=== PATIENT | female | born 1965 | race Two or more races ===

== ENCOUNTER 2022-09-13 17:08 | Emergency (ER) | payer OTHER ==
[~2022-09-13] VITALS: Ht 162.6 cm; Wt 75.0 kg
[2022-09-13] MEDS ORDERED: ONDANSETRON ODT 4 MG TAB PO ONE (20:30)
[2022-09-13] MEDS ORDERED: HYDROcodone-ACET 10/325MG TAB PO ONE (20:30)
[2022-09-13 21:55] LABS: Basophils # (auto) 0.1 10 ^3/uL (0-0.2); Basophils % (auto) 0.3 % (0.0-2.0); Eosinophils # (auto) 0.2 10 ^3/uL (0-0.8); Eosinophils % (auto) 1.1 % (0.0-7.0); Hematocrit 39.4 % (36.0-46.0); Lymphocytes # (auto) 2.6 10 ^3/uL (0.4-5.4); Mean Corpuscular Hemoglobin 28.7 pg (28.0-32.0); Mean Corpuscular Volume 87.1 fL (80.0-100.0); Monocytes # (auto) 1.2 10 ^3/uL (0-1.3); Neutrophils # (auto) 12.5 10 ^3/uL (1.6-8.6); Neutrophils % (auto) 75.6 % (37.0-80.0); Nucleated Red Blood Cells % 0.1 %; Red Blood Cells 4.52 10^6/uL (4.0-5.20); Red Cell Distribution Width 12.6 % (11.8-14.3); White Blood Cell 16.5 10^3/uL (4.4-10.8)
[2022-09-14] MEDS ORDERED: ETHYL CHLORIDE SPRAY TOP ONE (00:30)
[2022-09-14] MEDS ORDERED: IBUPROFEN 800 MG TAB PO ONE (00:45)
[2022-09-14] MEDS ORDERED: HYDROcodone-ACET 5/325MG TAB PO ONE (05:45)
[2022-09-14] MEDS ORDERED: ONDANSETRON ODT 4 MG TAB PO ONE ×2 (06:00→14:15)
[2022-09-14] MEDS ORDERED: OXYCODONE W/ ACETAMINOPHEN 5/325MG TABLET PO ONE (06:15)
[2022-09-14] MEDS ORDERED: cefTRIAXone 1GM/50ML D5W 50 ML IV ONE (06:45)
[2022-09-14] MEDS ORDERED: CLINDAMYCIN 600MG IV 50 ML IV ONE (06:45)
[2022-09-14] MEDS ORDERED: SODIUM CHLORIDE 0.9% 1,000 ML IV ONE (10:15)
[2022-09-14 11:32] VITALS: BP 130/80
[2022-09-14] MEDS ORDERED: HYDROcodone-ACET 10/325MG TAB PO ONE (14:15)
== END 2022-09-14 18:30 | disposition left against medical advice (07) ==
LOC: ER 17:08
DX: M00.9 Pyogenic arthritis, unspecified (principal); Z88.0 Allergy status to penicillin; Z20.822 Contact with and (suspected) exposure to COVID-19
CPT/HCPCS: 20610; 36415; 73562; 83605; 83615; 85025; 85652; 86141; 87040; 87205; 87426; 89051; 96365; 96367; 99284; J0696; J3490; J7030; Q0162